=== PATIENT | male | born 2000 | race Caucasian/White ===

== ENCOUNTER 2021-06-12 09:57 | Emergency (ER) | payer OTHER ==
[2021-06-12] MEDS ORDERED: Ketorolac 60 MG/2 ML SDV IM ONE (10:09)
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
== END 2021-06-12 11:02 | disposition home or self-care (01) ==
LOC: LB.ED 09:57
DX: G43.909 Migraine, unspecified, not intractable, without status migrainosus (principal)
CPT/HCPCS: 36415; 70450; 72125; 80053; 85025; 96372; 99284-25; J1885